=== PATIENT | male | born 1960 | race Caucasian/White ===

== ENCOUNTER → 2019-06-06 | Outpatient (CLI) | payer BC ==
[~2019-06-06] MED LIST: ASP325TEC PO; CATHETER FLUSH 10 ML SYR IV PRN; GEMF600T3 PO; MULT-974 PO; NEBI2.5T5 PO; NEBI5TAB8 PO; OLME20TA21 PO; OLME40TA14 PO; TADA5TAB2 PO
--- NOTE | 2019-06-06 12:10 | Diagnostic Imaging Report ---
INDICATION: Right upper quadrant pain. TECHNIQUE: Patient was administered 5.5 mCi technetium 99m Choletec intravenously and imaging over the abdomen was performed. After 60 minutes, the patient ingested one can of Ensure and a gallbladder ejection fraction was calculated. FINDINGS: There is homogeneous uptake of activity by the liver with prompt excretion of activity into the gallbladder and common duct. There is normal passage of activity into the small bowel. Gallbladder ejection fraction is slightly low at 32%. Normal values are 33% or greater. IMPRESSION: 1. Patent cystic duct and common bile duct. 2. Slightly low gallbladder ejection fraction of 32%. Dictated by: Dictated on workstation # [id number]
== END ==
LOC: CARD 09:33
PROVIDERS: ATTEND Nurse Practitioner
DX: R10.11 Right upper quadrant pain (principal)
CPT/HCPCS: 78227

== ENCOUNTER 2021-09-06 12:52 | Emergency (ER) | payer BC ==
[~2021-09-06] VITALS: Ht 170.2 cm; Wt 104.3 kg
[~2021-09-06 12:52] MED LIST changes: -CATHETER FLUSH 10 ML SYR IV PRN
[2021-09-06 13:07] LABS: BASOPHILS % (AUTO) 1 % (0-10); EOSINOPHILS # (AUTO) 0.2 10^3/uL (0.0-0.3); EOSINOPHILS % (AUTO) 3 % (0-10); HEMATOCRIT 44 % (40-54); HEMOGLOBIN 16.3 g/dL (13.3-17.7); LYMPHOCYTES # (AUTO) 1.7 10^3/uL (1.0-4.0); LYMPHOCYTES % (AUTO) 31 % (12-44); MEAN CORPUSCULAR HEMOGLOBIN 33 pg (25-34); MEAN CORPUSCULAR HGB CONC 37 g/dL (32-36); MEAN CORPUSCULAR VOLUME 89 fL (80-99); MEAN PLATELET VOLUME 9.9 fL (9.0-12.2); MONOCYTES # (AUTO) 0.7 10^3/uL (0.0-1.0); MONOCYTES % (AUTO) 13 % (0-12); NEUTROPHILS # (AUTO) 2.8 10^3/uL (1.8-7.8); NEUTROPHILS % (AUTO) 52 % (42-75); PLATELET COUNT 174 10^3/uL (130-400); WHITE BLOOD COUNT 5.4 10^3/uL (4.3-11.0)
[2021-09-06 13:14] LABS: ALBUMIN 4.4 GM/DL (3.2-4.5)
[2021-09-06 13:15] LABS: POTASSIUM 3.8 MMOL/L (3.6-5.0)
[2021-09-06] MEDS ORDERED: ASPIRIN 81 MG CHEW (CHILDREN'S ASA) PO ONE (13:15)
[2021-09-06 13:16] LABS: CALCIUM 9.5 MG/DL (8.5-10.1); INR 1.1 (0.8-1.4); PROTHROMBIN TIME PATIENT 14.9 SEC (12.2-14.7)
[2021-09-06 13:17] LABS: TOTAL PROTEIN 7.9 GM/DL (6.4-8.2)
[2021-09-06 13:19] LABS: BILIRUBIN,TOTAL 1.1 MG/DL (0.1-1.0)
[2021-09-06 13:21] LABS: CREATININE SERUM 0.9 MG/DL (0.60-1.30)
--- NOTE | 2021-09-06 13:21 | ED Chest Pain ---
General Chief Complaint: Chest Pain Stated Complaint: CP,BACK PAIN Nursing Triage Note: PT AMBULATE TO ROOM 05 WITH C/O CHEST PRESSURE "FOR A COUPLE DAYS". Source: patient Exam Limitations: no limitations (OLESYA HAN APRN) History of Present Illness Date Seen by Provider: Sep 06, 2021 Time Seen by Provider: 13:20 Initial Comments To ER with reports of left-sided chest pressure described as "a basketball in my chest". He has a known hiatal hernia. He had some pain that has been noticed for the past few days intermittently. He states that he wakes up in the morning and feels fine, as the day progresses he gets a bit more pain. Activities such as loading cattle or moving hay feeder seems to bring the pain on and it seems to improve with rest and sitting down. He is not diabetic does not smoke but he does have obesity, hyperlipidemia and hypertension. He follows with Dr. Cano. Had a clean cardiac catheterization 6 years ago. 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 (Full dose aspirin prior t) NTG SL TYPE PROOF REPRODUCER: No (OLESYA HAN APRN) Allergies and Home Medications Allergies Coded Allergies: No Known Allergies (Unverified Allergy, Unknown, 10/22/14) Patient Home Medication List Home Medication List Reviewed: Yes (OLESYA HAN APRN) Aspirin (Aspirin Ec 325 Mg) 325 Mg Tabec, 325 MG PO DAILY, (Reported) Entered as Reported by: SHAVONNE MITCHELL on 10/22/14 1402 Gemfibrozil (Gemfibrozil) 600 Mg Tablet, 600 MG PO BID, (Reported) Entered as Reported by: SHAVONNE MITCHELL on 10/22/14 1402 Multivitamin (Multi Vitamin Daily) 1 Each Tablet, 1 TAB PO DAILY, (Reported) Entered as Reported by: ALEX PALACIOS on 10/23/14 1236 Nebivolol Hcl (Bystolic) 2.5 Mg Tablet, 2.5 MG PO DAILY Prescribed by: ZENIA LOO on 01/11/15 1248 Olmesartan Medoxomil (Benicar) 40 Mg Tablet, 40 MG PO DAILY, (Reported) Entered as Reported by: ALEX PALACIOS on 10/23/14 1236 Simethicone (Simethicone) 180 Mg Capsule, 360 MG PO TID Prescribed by: OLESYA HAN on 09/06/21 1601 Tadalafil (Cialis) 5 Mg Tablet, 5 MG PO DAILY, (Reported) Entered as Reported by: ALEX PALACIOS on 10/23/14 1237 Review of Systems Review of Systems Constitutional: see HPI EENTM: No Symptoms Reported Respiratory: No Symptoms Reported Cardiovascular: See HPI, Chest Pain Gastrointestinal: See HPI Genitourinary: No Symptoms Reported Musculoskeletal: no symptoms reported Skin: no symptoms reported Psychiatric/Neurological: No Symptoms Reported Endocrine: No Symptoms Reported Hematologic/Lymphatic: No Symptoms Reported (OLESYA HAN APRN) Past Cxkcpos-Czispb-Rtgbip Hx Patient Social History Tobacco Use?: No Smoking Status: Never a Smoker Smokeless Tobacco Frequency: Never a User Use of E-Cig and/or Vaping dev: No Use of E-Cig and/or Vaping Tree: Never a User Substance use?: No Alcohol Use?: Yes Alcohol type: Beer Alcohol Frequency: Couple times a week Pt feels they are or have been: No (OLESYA HAN APRN) Immunizations Up To Date Tetanus Booster (TDap): Less than 5yrs (OLESYA HAN APRN) Past Medical History Reproductive Disorders: No Fractures Adverse Reaction/Blood Tranf: No (OLESYA HAN APRN) Family Medical History Colon cancer 19 MOTHER Diabetes mellitus 19 MOTHER FH: CHF (congestive heart failure) 19 MOTHER Hypercholesterolemia 19 FATHER G8 BROTHER Hypertension 19 MOTHER G8 BROTHER Myocardial infarction 19 FATHER, Onset:50 Physical Exam Vital Signs Vital Signs - First Documented 09/06/21 09/06/21 12:55 16:09 Temp 36.6 Pulse 74 Resp 16 B/P (MAP) 161/84 (109) Pulse Ox 97 O2 Delivery Room Air (FRANCE OMALLEY MD) Vital Signs Capillary Refill : Less Than 3 Seconds (OLESYA HAN APRN) Height, Weight, BMI Height: 5'7.00" Weight: 225lbs. 0.0oz. 102.788708eh; 36.00 BMI Method: General Appearance: No Apparent Distress, WD/WN HEENT: PERRL/EOMI, TMs Normal Neck: Full Range of Motion, Normal Inspection Respiratory: Normal Breath Sounds, No Accessory Muscle Use, No Respiratory Distress Cardiovascular: Regular Rate, Rhythm, Normal Peripheral Pulses Gastrointestinal: Normal Bowel Sounds, Non Tender, Soft Extremity: Normal Capillary Refill, Normal Inspection Neurologic/Psychiatric: Alert, Oriented x3 Skin: Normal Color, Warm/Dry (OLESYA HAN APRN) Progress/Results/Core Measures Results/Orders Lab Results Laboratory Tests Test 09/06/21 13:00 09/06/21 15:16 Range/Units White Blood Count 5.4 4.3-11.0 10^3/uL Red Blood Count 4.98 4.30-5.52 10^6/uL Hemoglobin 16.3 13.3-17.7 g/dL Hematocrit 44 40-54 % Mean Corpuscular Volume 89 80-99 fL Mean Corpuscular Hemoglobin 33 25-34 pg Mean Corpuscular Hemoglobin Concent 37 H 32-36 g/dL Red Cell Distribution Width 12.4 10.0-14.5 % Platelet Count 174 130-400 10^3/uL Mean Platelet Volume 9.9 9.0-12.2 fL Immature Granulocyte % (Auto) 0 % Neutrophils (%) (Auto) 52 42-75 % Lymphocytes (%) (Auto) 31 12-44 % Monocytes (%) (Auto) 13 H 0-12 % Eosinophils (%) (Auto) 3 0-10 % Basophils (%) (Auto) 1 0-10 % Neutrophils # (Auto) 2.8 1.8-7.8 10^3/uL Lymphocytes # (Auto) 1.7 1.0-4.0 10^3/uL Monocytes # (Auto) 0.7 0.0-1.0 10^3/uL Eosinophils # (Auto) 0.2 0.0-0.3 10^3/uL Basophils # (Auto) 0.0 0.0-0.1 10^3/uL Immature Granulocyte # (Auto) 0.0 0.0-0.1 10^3/uL Prothrombin Time 14.9 H 12.2-14.7 SEC INR Comment 1.1 0.8-1.4 Activated Partial Thromboplast Time 35 24-35 SEC Sodium Level 139 135-145 MMOL/L Potassium Level 3.8 3.6-5.0 MMOL/L Chloride Level 106 98-107 MMOL/L Carbon Dioxide Level 20 L 21-32 MMOL/L Anion Gap 13 5-14 MMOL/L Blood Urea Nitrogen 10 7-18 MG/DL Creatinine 0.90 0.60-1.30 MG/DL Estimat Glomerular Filtration Rate 97 BUN/Creatinine Ratio 11 Glucose Level 121 H 70-105 MG/DL Calcium Level 9.5 8.5-10.1 MG/DL Corrected Calcium 9.2 8.5-10.1 MG/DL Magnesium Level 2.1 1.6-2.4 MG/DL Total Bilirubin 1.1 H 0.1-1.0 MG/DL Aspartate Amino Transf (AST/SGOT) 69 H 5-34 U/L Alanine Aminotransferase (ALT/SGPT) 83 H 0-55 U/L Alkaline Phosphatase 73 40-136 U/L Myoglobin 66.3 10.0-92.0 NG/ML Troponin I < 0.028 < 0.028 <0.028 NG/ML B-Type Natriuretic Peptide 19.9 <100.0 PG/ML Total Protein 7.9 6.4-8.2 GM/DL Albumin 4.4 3.2-4.5 GM/DL (FRANCE OMALLEY MD) My Orders Orders - FRANCE OMALLEY MD Ekg Tracing (09/06/21 12:55) (FRANCE OMALLEY MD) Medications Given in ED Current Medications Medications Dose Ordered Sig/Johnie Route Start Time Stop Time Status Last Admin Dose Admin Al Hydrox/Mg Hydrox/Simethicone 30 ml ONCE ONCE PO 09/06/21 13:45 09/06/21 13:46 DC 09/06/21 14:22 30 ML Lidocaine HCl 15 ml ONCE ONCE PO 09/06/21 13:45 09/06/21 13:46 DC 09/06/21 14:22 15 ML (FRANCE OMALLEY MD) Vital Signs/I&O 09/06/21 09/06/21 12:55 16:09 Temp 36.6 Pulse 74 79 Resp 16 18 B/P (MAP) 161/84 (109) 157/81 Pulse Ox 97 O2 Delivery Room Air Room Air (FRANCE OMALLEY MD) Blood Pressure Mean: 109 Departure Communication (Admissions) 1600-pain was significantly improved after GI cocktail. He reports that he has a known hiatal hernia and this was found on EGD by Dr. NAJERA about a year ago. He is already on Protonix. I will discharge to home with follow-up with surgery. He had a clean cardiac catheterization in 2014. Non-smoker not diabetic does have hypertension hyperlipidemia. (OLESYA HAN APRN) Impression Primary Impression: Chest pain Disposition: HOME, SELF-CARE Condition: Stable Departure-Patient Inst. Decision time for Depature: 15:59 (OLESYA HAN APRN) Referrals: NO,LOCAL PHYSICIAN (PCP) Primary Care Physician HI CARTER (Family) Primary Care Physician Patient Instructions: Hiatal Hernia Add. Discharge Instructions: 1. Return to ER for any concerns. Collect acute on Thursday to make an appointment to be seen for follow-up. All discharge instructions reviewed with patient and/or family. Voiced understanding. Scripts Simethicone (Simethicone) 180 Mg Capsule 360 MG PO TID, #30 CAP Prov: OLESYA HAN APRN 09/06/21 ATTENDING PHYSICIAN NOTE: I was physically present as attending physician in the emergency department during the care of this patient, but I was not directly involved in the decision making or delivery of care for this patient. (FRANCE OMALLEY MD) OLESYA HAN APRN Sep 06, 2021 13:21 FRANCE OMALLEY MD Sep 06, 2021 19:10
[2021-09-06 13:24] LABS: MAGNESIUM 2.1 MG/DL (1.6-2.4)
--- NOTE | 2021-09-06 13:24 | Diagnostic Imaging Report ---
INDICATION: Chest pain COMPARISON: None. FINDINGS: Single frontal view of the chest demonstrates normal heart size and pulmonary vascularity. The lungs are well aerated and clear. No large pleural effusion or pneumothorax is seen. The visualized osseous structures show no acute abnormalities. IMPRESSION: 1. No acute cardiopulmonary process. Dictated by: Dictated on workstation # [id number]
[2021-09-06] MEDS ORDERED: LIDOCAINE 2% VISCOUS 15 ML UDC PO ONE (13:45)
[2021-09-06] MEDS ORDERED: ANTACID SUSP 30 ML UDC (MYLANTA) PO ONE (13:45)
[2021-09-06] MEDS ORDERED: SIME180C65 PO (16:01)
[2021-09-06 16:09] VITALS: BP 157/81
== END 2021-09-06 16:09 | disposition home or self-care (01) ==
LOC: EDUNIT# 12:52 → ER 12:54
DX: R07.9 Chest pain, unspecified (principal); I10 Essential (primary) hypertension; E66.9 Obesity, unspecified; Z68.36 Body mass index [BMI] 36.0-36.9, adult; Z79.82 Long term (current) use of aspirin
CPT/HCPCS: 36415; 71045; 80053; 83735; 83874; 83880; 84484; 85025; 85610; 85730; 93005; 93041